=== PATIENT | female | born 1990 | race Caucasian/White ===

== ENCOUNTER 2022-08-14 14:33 | Inpatient (IN) | payer OTHER ==
[~2022-08-14 14:33] MED LIST: Bupivacaine PF 0.5% 30 ML VIAL ONE
[2022-08-14] MEDS ORDERED: Fentanyl 2 mcg/Bup 0.1% Cadd 100 ML ONE (14:45)
[2022-08-14 14:55] VITALS: BMI 29.0
[2022-08-14] MEDS ORDERED: Acetaminophen 500 MG TAB PO PRN (15:27)
[2022-08-14] MEDS ORDERED: Butorphanol Tartrate 1 MG/ML VIAL SLOW IVP PRN (15:27)
[2022-08-14] MEDS ORDERED: Promethazine HCl 25 MG/ML VIAL IM PRN ×2 (15:27→19:50)
[2022-08-14] MEDS ORDERED: Ondansetron PF 4 MG/2 ML Vial IVP PRN ×3 (15:27→21:14)
[2022-08-14] MEDS ORDERED: hydrALAZINE 20 MG/ML VIAL SLOW IVP PRN ×2 (15:27→21:14)
[2022-08-14] MEDS ORDERED: Lactated Ringer's 1,000 ML IV SCH (15:30)
[2022-08-14 15:35] LABS: Hemoglobin 11.6 g/dL (12.0-15.5); Mean Corpuscular HGB CONC 35.2 g/dL (32.0-36.0); Mean Corpuscular Hemoglobin 29.7 pg (27.0-33.0); Mean Corpuscular Volume 84.6 fl (81.6-98.3); Mean Platelet Volume 12.7 fl (7.4-10.4); Platelet Count 171 10x3/uL (150-450); RBC Distribution Width 12.3 % (11.5-14.5); White Blood Cell (WBC) Count 7.1 10x3/uL (3.5-10.5)
[2022-08-14] MEDS ORDERED: Ibuprofen 800 MG TAB PO PRN (15:47)
[2022-08-14] MEDS ORDERED: Lidocaine 1% (PF) 30 ML VIAL SC PRN (15:47)
[2022-08-14] MEDS ORDERED: HYDROcodone/Acetaminophen 5/325 mg Tablet PO PRN ×3 (15:47→21:14)
[2022-08-14 15:52] LABS: SARS-CoV-2 NAA Rapid Test Not Detected (NotDetected)
[2022-08-14] MEDS ORDERED: NS w/ Oxytocin 30 units 500 ML IV SCH ×2 (16:00)
[2022-08-14 16:07] LABS: Syphilis Antibody Nonreactive (Nonreactive); Syphilis Antibody Index 0.04 S/CO (<1.00 Non-Reactive)
[2022-08-14 16:08] LABS: Hep B Surf Ag Non-Reactive S/CO (NonReactive)
[2022-08-14] MEDS ORDERED: diphenhydrAMINE 50 MG/ML VIAL IVP PRN (19:50)
[2022-08-14] MEDS ORDERED: Naloxone HCl 0.4 mg/ml Vial IVP PRN ×2 (19:50)
[2022-08-14] MEDS ORDERED: Moisturizing Cream (Eucerin) 113 GM JAR TOP PRN (19:50)
[2022-08-14] MEDS ORDERED: Acetaminophen 325 MG TAB PO PRN (19:50)
[2022-08-14] MEDS ORDERED: ePHEDrine Sulfate 50 MG/10 ML VIAL SLOW IVP PRN (19:50)
[2022-08-14] MEDS ORDERED: Lactated Ringer's 500 ML IV PRN (19:50)
[2022-08-14] MEDS ORDERED: Fentanyl 2 mcg/Bupivacaine 0.1% Cassette 100 ML EPIDURAL SCH (20:00)
[2022-08-14] MEDS ORDERED: Communication Order-Pharmacy FS SCH (20:00)
[2022-08-14] MEDS ORDERED: Boostrix 0.5 ML (Tdap) VIAL (>/=7 yrs of age) IM ONE (21:14)
[2022-08-14] MEDS ORDERED: Preparation H Ointment 28 GM TUBE PR PRN (21:14)
[2022-08-14] MEDS ORDERED: Bisacodyl 10 MG SUPP PR PRN (21:14)
[2022-08-14] MEDS ORDERED: Milk Of Magnesia 30 ML UDCUP PO PRN (21:14)
[2022-08-14] MEDS ORDERED: diphenhydrAMINE 25 MG CAP PO PRN (21:14)
[2022-08-14] MEDS ORDERED: Lanolin Ointment 7 GM TUBE TOP PRN (21:14)
[2022-08-14] MEDS: Docusate 100 MG CAP PO SCH (21:53)
[2022-08-14] MEDS: Ibuprofen 800 MG TAB PO SCH (21:54)
[2022-08-15] MEDS: HYDROcodone/Acetaminophen 5/325 mg Tablet PO PRN ×2 (03:59→15:18)
[2022-08-15] MEDS: Ibuprofen 800 MG TAB PO SCH ×3 (05:02→21:39)
[2022-08-15] MEDS: Ferrous Sulfate 325 MG TAB PO SCH ×2 (08:14→17:03)
[2022-08-15] MEDS: Docusate 100 MG CAP PO SCH ×2 (08:37→21:39)
[2022-08-15] MEDS: Prenatal Vitamin 1 TAB PO SCH (08:37)
[2022-08-15] MEDS ORDERED: Fioricet 325/50/40 mg Tablet PO PRN (10:11)
[2022-08-16] MEDS: Ibuprofen 800 MG TAB PO SCH (05:40)
[2022-08-16 07:37] VITALS: BP 118/64; TEMP 98.3
[2022-08-16] MEDS: Ferrous Sulfate 325 MG TAB PO SCH (07:53)
[2022-08-16] MEDS: Prenatal Vitamin 1 TAB PO SCH (08:35)
[2022-08-16] MEDS: Docusate 100 MG CAP PO SCH (08:35)
== END 2022-08-16 11:35 | disposition home or self-care (01) | DRG 807 ==
LOC: CSHLD 14:33 → CSHPP 21:40
PROVIDERS: ADMIT Obstetrics & Gynecology; ATTEND Obstetrics & Gynecology
PROC: 10E0XZZ Delivery of Products of Conception, External Approach (ICD-10-PCS; principal; 2022-08-14)
PROC: 0KQM0ZZ Repair Perineum Muscle, Open Approach (ICD-10-PCS; 2022-08-14)
PROC: 0UQMXZZ Repair Vulva, External Approach (ICD-10-PCS; 2022-08-14)
DX: O26.893 Other specified pregnancy related conditions, third trimester (principal); Z37.0 Single live birth; O69.81X0 Labor and delivery complicated by cord around neck, without compression, not applicable or unspecified; Z3A.38 38 weeks gestation of pregnancy; O71.82 Other specified trauma to perineum and vulva; O70.1 Second degree perineal laceration during delivery; Z67.41 Type O blood, Rh negative
CPT/HCPCS: 36415; 51702; 62272; 85027; 85461; 86780; 86850; 86900; 86901; 87340; J2590; S0020; U0002

== ENCOUNTER 2023-02-12 10:27 | Emergency (ER) | payer BC, OTHER ==
[2023-02-12] MEDS ORDERED: Ketorolac Tromethamine 30 MG/ML VIAL ONE (11:15)
== END 2023-02-12 11:49 | disposition home or self-care (01) ==
LOC: CSHERS 10:27
DX: S16.1XXA Strain of muscle, fascia and tendon at neck level, initial encounter (principal); K21.9 Gastro-esophageal reflux disease without esophagitis; V49.9XXA Car occupant (driver) (passenger) injured in unspecified traffic accident, initial encounter
CPT/HCPCS: 96372; 99283; J1885

== ENCOUNTER 2023-08-04 03:37 | Emergency (ER) | payer OTHER, BC | END 2023-08-04 04:34 | disposition left against medical advice (07) | LOC: CSHERS 03:37 | DX: Z53.21 Procedure and treatment not carried out due to patient leaving prior to being seen by health care provider (principal) ==

== ENCOUNTER → 2023-08-22 | Day surgery (SDC) | payer BC, OTHER ==
[2023-08-21 12:35] VITALS: BMI 25.6
[~2023-08-22] MED LIST changes: -Bupivacaine PF 0.5% 30 ML VIAL ONE; +CEFAZOLIN 2 GM VIAL ONE; +Dexamethasone 4 mg/ml Vial ONE; +Lidocaine 2% PF 5 ML VIAL ONE; +Methylergonovine 0.2 MG/ML VIAL ONE; +Midazolam HCl 2 mg/2 ml Vial ONE; +Ondansetron PF 4 MG/2 ML Vial ONE; +Oxytocin 10 UNITS/ML VIAL ONE; +PROPOFOL 40 ML ONE; +Rocuronium Bromide 10 MG/ML (10ML VIAL) ONE; +Silver Nitrate Application 1 EACH ONE; +Succinylcholine 200 MG/10 ml SYRINGE FS ONE; +Tranexamic Acid 1,000 MG/10 ML VIAL ONE; +ePHEDrine Sulfate 50 MG/10 ML VIAL ONE; +fentaNYL 50 mcg/mL 1 mL Vial ONE
[2023-08-22 08:28] LABS: Hematocrit 36.7 % (34.9-44.5); Hemoglobin 13.6 g/dL (12.0-15.5); Mean Corpuscular HGB CONC 37.1 g/dL (32.0-36.0); Mean Corpuscular Hemoglobin 32.1 pg (27.0-33.0); Mean Corpuscular Volume 86.6 fl (81.6-98.3); Platelet Count 246 10x3/uL (150-450); RBC Distribution Width 12.5 % (11.5-14.5); Red Blood Cell (RBC) Count 4.24 10x6/uL (3.90-5.03); White Blood Cell (WBC) Count 6.8 10x3/uL (3.5-10.5)
== END ==
LOC: CSHSDC 07:14
PROVIDERS: ATTEND Obstetrics & Gynecology
PROC: 10D17ZZ Extraction of Products of Conception, Retained, Via Natural or Artificial Opening (ICD-10-PCS; principal; 2023-08-22)
DX: O09.92 Supervision of high risk pregnancy, unspecified, second trimester (principal); O02.1 Missed abortion; O73.1 Retained portions of placenta and membranes, without hemorrhage; Z88.5 Allergy status to narcotic agent; F41.9 Anxiety disorder, unspecified; F32.A Depression, unspecified; K21.9 Gastro-esophageal reflux disease without esophagitis; Z79.899 Other long term (current) drug therapy
CPT/HCPCS: 36415; 85027; 86850; 86900; 86901; 88305; J1100; J2001; J2210; J2250; J2405; J2590; J2704; J3010